=== PATIENT | male | born 1965 | race Caucasian/White ===

== ENCOUNTER 2022-12-26 16:16 | Emergency (ER) | payer SELFPAY ==
[~2022-12-26] VITALS: Ht 182.9 cm; Wt 77.1 kg
[2022-12-26 16:30] VITALS: BP 132/80; PULSE 74; RESP 18; TEMP 98; O2SAT 98
[2022-12-26 17:05] VITALS: BP 132/80; PULSE 74; RESP 18; TEMP 98; O2SAT 98
== END 2022-12-26 17:05 ==
LOC: MED 16:16
DX: Z02.89 Encounter for other administrative examinations (principal); V49.88XA Car occupant (driver) (passenger) injured in other specified transport accidents, initial encounter; Y93.89 Activity, other specified; Y92.89 Other specified places as the place of occurrence of the external cause; Y99.8 Other external cause status
CPT/HCPCS: 99283